=== PATIENT | male | born 1955 | race Caucasian/White ===

== ENCOUNTER 2019-05-06 02:49 | Emergency (ER) | payer OTHER ==
[~2019-05-06] VITALS: Ht 172.7 cm; Wt 135.6 kg
--- NOTE | 2019-05-06 02:55 | ED.ADGEN ---
Past History Past Medical History: Arthritis, Other Adult General Chief Complaint Chief Complaint ".. I ve.. been having this Lt flank, hip and leg pain for past week.. it got so bad tonight.. I could not sleep... " HPI HPI Patient is a 63 year old male who presents with above hx and complaints of severe left flank hip and leg pain. Pain has been persistent for the past week. No history of specific injury. Patient has had history of previous disc disease. Patient normally follows at [place]. No recent travel. 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 Patient is any problem. Urination or defecation. Does walk with guarded gait because of left leg pain. Patient reports marked pain after sitting or with left leg straight lift. Patient has no spinal midline tenderness. Patient does have a history of venous stasis and leg edema. Review of Systems Review of Systems Constitutional: Denies fever or chills [] Eyes: Denies change in visual acuity, redness, or eye pain [] HENT: Denies nasal congestion or sore throat [] Respiratory: Denies cough or shortness of breath [] Cardiovascular: No additional information not addressed in HPI [] GI: Denies abdominal pain, nausea, vomiting, bloody stools or diarrhea [] : Denies dysuria or hematuria [] Musculoskeletal: Complains of left flank and lower back pain and left leg pain. Integument: Denies rash or skin lesions [] Neurologic: Denies headache, focal weakness or sensory changes [] Endocrine: Denies polyuria or polydipsia [] All other systems were reviewed and found to be within normal limits, except as documented in this note. Family History Family History Noncontributory Current Medications Current Medications Current Medications Medications (Trade) Dose Ordered Sig/Rosalina Start Time Stop Time Status Last Admin Dose Admin Famotidine (Pepcid Vial) 20 mg 1X ONCE 05/06/19 03:15 05/06/19 04:16 DC 05/06/19 04:22 20 MG Ketorolac Tromethamine (Toradol 30mg Vial) 30 mg 1X ONCE 05/06/19 03:15 05/06/19 04:16 DC 05/06/19 04:21 30 MG Lactated Ringer's 1,000 ml @ 1,000 mls/hr Q1H 05/06/19 03:00 05/06/19 04:16 DC 05/06/19 04:21 1,000 MLS/HR Lorazepam (Ativan Inj) 2 mg 1X ONCE 05/06/19 04:45 05/06/19 05:30 DC 05/06/19 05:20 2 MG Methylprednisolone Acetate (DEPO-Medrol IM) 40 mg 1X ONCE 05/06/19 04:45 05/06/19 05:30 DC 05/06/19 05:20 40 MG Morphine Sulfate (Morphine 10mg Syringe) 10 mg 1X ONCE 05/06/19 03:15 05/06/19 04:16 DC 05/06/19 04:21 10 MG Ondansetron HCl (Zofran) 8 mg 1X ONCE 05/06/19 03:15 05/06/19 04:16 DC 05/06/19 04:22 8 MG Orphenadrine Citrate (Norflex) 60 mg 1X ONCE 05/06/19 03:15 05/06/19 04:16 DC 05/06/19 04:22 60 MG Allergies Allergies Allergies Coded Allergies Type Severity Reaction Last Updated Verified No Known Drug Allergies 05/06/19 No Physical Exam Physical Exam Constitutional: In acute distress, non-toxic appearance. [] HENT: Normocephalic, atraumatic, bilateral external ears normal, oropharynx moist, no oral exudates, nose normal. [] Eyes: PERRLA, EOMI, conjunctiva normal, no discharge. [] Neck: Normal range of motion, no tenderness, supple, no stridor. [] Cardiovascular: Bradycardia Heart rate regular rhythm, no murmur [] Lungs & Thorax: Bilateral breath sounds equal at apexes and a few basilar crackles on bases auscultation [] Abdomen: Bowel sounds normal, soft, no tenderness, no masses, no pulsatile masses. Morbid obesity. Skin: Warm, dry, no erythema, no rash. [] Back: No tenderness, no CVA tenderness. [] Extremities: No tenderness, no cyanosis, no clubbing, ROM intact, bilateral ankle edema. Venous stasis.. []Except findings of left leg sciatic pain on palpation. Neurologic: Alert and oriented X 3, moves all extremities on request. Does have distal sensory, no focal deficits noted. []DTRs +2 patella and brachial. No saddle loss. Psychologic: Affect anxious, judgement normal, mood normal. [] Current Patient Data Vital Signs Vital Signs Date Time Temp Pulse Resp B/P (MAP) Pulse Ox O2 Delivery O2 Flow Rate FiO2 05/06/19 05:30 98.0 63 20 126/55 (78) 98 Room Air Lab Results Laboratory Tests Test 05/06/19 03:40 05/06/19 04:30 White Blood Count 8.5 x10^3/uL (4.0-11.0) Red Blood Count 4.42 x10^6/uL (4.30-5.70) Hemoglobin 13.9 g/dL (13.0-17.5) Hematocrit 41.7 % (39.0-53.0) Mean Corpuscular Volume 94 fL (79-100) Mean Corpuscular Hemoglobin 31 pg (25-35) Mean Corpuscular Hemoglobin Concent 33 g/dL (31-37) Red Cell Distribution Width 13.5 % (11.5-14.5) Platelet Count 178 x10^3/uL (140-400) Neutrophils (%) (Auto) 60 % (31-73) Lymphocytes (%) (Auto) 23 % (24-48) L Monocytes (%) (Auto) 10 % (0-9) H Eosinophils (%) (Auto) 6 % (0-3) H Basophils (%) (Auto) 1 % (0-3) Neutrophils # (Auto) 5.1 x10^3uL (1.8-7.7) Lymphocytes # (Auto) 2.0 x10^3/uL (1.0-4.8) Monocytes # (Auto) 0.9 x10^3/uL (0.0-1.1) Eosinophils # (Auto) 0.5 x10^3/uL (0.0-0.7) Basophils # (Auto) 0.0 x10^3/uL (0.0-0.2) Prothrombin Time 10.4 SEC (9.4-11.4) Prothrombin Time INR 1.0 (0.9-1.1) Activated Partial Thromboplast Time 24 SEC (23-33) Sodium Level 144 mmol/L (136-145) Potassium Level 4.0 mmol/L (3.5-5.1) Chloride Level 107 mmol/L (98-107) Carbon Dioxide Level 27 mmol/L (21-32) Anion Gap 10 (6-14) Blood Urea Nitrogen 21 mg/dL (8-26) Creatinine 1.2 mg/dL (0.7-1.3) Estimated GFR (Cockcroft-Gault) 61.1 Glucose Level 121 mg/dL (70-99) H Calcium Level 8.6 mg/dL (8.5-10.1) Total Bilirubin 0.3 mg/dL (0.2-1.0) Direct Bilirubin 0.1 mg/dL (0.0-0.2) Aspartate Amino Transferase (AST) 20 U/L (15-37) Alanine Aminotransferase (ALT) 31 U/L (16-63) Alkaline Phosphatase 72 U/L (46-116) Creatine Kinase 173 U/L (39-308) Troponin I Quantitative < 0.017 ng/mL (0-0.055) Total Protein 6.4 g/dL (6.4-8.2) Albumin 3.1 g/dL (3.4-5.0) L Amylase Level 48 U/L (25-115) Lipase 97 U/L (73-393) Urine Collection Type Unknown Urine Color Yellow Urine Clarity Clear Urine pH 6.0 Urine Specific [place] >=1.030 Urine Protein Neg (NEG-TRACE) Urine Glucose (UA) Neg mg/dL (NEG) Urine Ketones (Stick) Neg mg/dL (NEG) Urine Blood Neg (NEG) Urine Nitrite Neg (NEG) Urine Bilirubin Neg (NEG) Urine Urobilinogen Dipstick 0.2 mg/dL (0.2 mg/dL) Urine Leukocyte Esterase Neg (NEG) Urine RBC Occ /HPF (0-2) Urine WBC 0 /HPF (0-4) Urine Squamous Epithelial Cells Occ /LPF Urine Bacteria Few /HPF (0-FEW) Urine Mucus Slight /LPF Urine Opiates Screen Neg (NEG) Urine Methadone Screen Neg (NEG) Urine Barbiturates Neg (NEG) Urine Phencyclidine Screen Neg (NEG) Urine Amphetamine/Methamphetamine Neg (NEG) Urine Benzodiazepines Screen Neg (NEG) Urine Cocaine Screen Neg (NEG) Urine Cannabinoids Screen Neg (NEG) Urine Ethyl Alcohol Neg (NEG) EKG EKG My interpretation EKG shows a sinus rhythm at 61 bpm. No acute findings of STEMI[] Radiology/Procedures Radiology/Procedures -[][address] [address] IMAGING REPORT Signed PATIENT: AYUSH ROYAL ACCOUNT: [id number] : 1955 LOCATION: ER AGE: 63 SEX: M EXAM STATUS: REG ER ORD. PHYSICIAN: DENA GAMA MD REASON: Left hip pain PROCEDURE: CT PELVIS WO CONTRAST CT pelvis with contrast HISTORY: Pain Axial helical images of the pelvis obtained without contrast and axial coronal and sagittal reconstruction was performed. The visualized osseous structures appear normal. There is no free fluid. The appendix is normal. IMPRESSION: No acute findings. End impression CT lumbar spine without contrast History: Back pain Axial helical images of the lumbar spine were obtained without contrast. Axial, coronal and sagittal reconstruction was performed. Findings: The vertebral bodies are aligned. There is no loss of vertebral body stature. Evaluation of the central canal is limited without contrast. There is degenerative changes with mild loss of intervertebral disc height. Diffuse or frontal disc bulges resulting in minimal central stenosis at multiple levels. There is moderate narrowing of multiple neuroforamen below the level exiting nerve roots and there is loss of fat around the exiting nerve root on the left at L4-L5. Impression: Degenerative changes. Compression of the intraforaminal course of the exiting nerve root on the left L4-5. No acute findings. PQRS Compliance Statement: One or more of the following individualized dose reduction techniques were utilized for this examination: 1. Automated exposure control 2. Adjustment of the mA and/or kV according to patient size 3. Use of iterative reconstruction technique Electronically signed by: Carolyn Paez III, MD (05/06/2019 4:26 AM) [facility] DICTATED AND SIGNED BY: CAROLYN PAEZ III, MD DATE: 05/06/19 0426 CC: SANDIE RICHARD DO; DENA GAMA MD ~ Course & Med Decision Making Course & Med Decision Making Pertinent Labs and Imaging studies reviewed. (See chart for details). Patient use ice packs as needed for the next 2 or 3 days. Keep follow-up primary care. Take Tylenol ibuprofen for pain. May take Flexeril 10 mg up to 3 times a day for muscle spasms. For marked discomfort may take Vicoprofen up to 4 times a day. Patient to keep follow-up appointments. Patient may be a candidate for physical therapy, acupuncture, and/or spinal steroid injections.. Must follow- up. Return if any concerns. [] Final Impression Final Impression 1. Sciatica 2. Multilevel DJD Lumbar Spine 3. Lt. L-4-5 compression Neuroformamen nerve root 4. Glucose 121 Dragon Disclaimer Dragon Disclaimer This electronic medical record was generated, in whole or in part, using a voice recognition dictation system. Dragon Disclaimer This chart was dictated in whole or in part using Voice Recognition software in a busy, high-work load, and often noisy Emergency Department environment. It may contain unintended and wholly unrecognized errors or omissions. Dragon Disclaimer This chart was dictated in whole or in part using Voice Recognition software in a busy, high-work load, and often noisy Emergency Department environment. It may contain unintended and wholly unrecognized errors or omissions. DENA GAMA MD May 06, 2019 02:55
[2019-05-06] MEDS ORDERED: IV RINGERS SOLUTION,LACTATED 1,000 ML IV SCH (03:00)
[2019-05-06] MEDS ORDERED: ORPHENADRINE CITRATE 60 MG/2 ML VIAL. IV ONE (03:15)
[2019-05-06] MEDS ORDERED: ONDANSETRON PF 4 MG/2 ML VIAL. IVP ONE (03:15)
[2019-05-06] MEDS ORDERED: KETOROLAC 30 MG/ML VIAL. IVP ONE (03:15)
[2019-05-06] MEDS ORDERED: FAMOTIDINE 20 MG/2 ML VIAL IVP ONE (03:15)
[2019-05-06] MEDS ORDERED: MORPHINE SULFATE 10 MG/ML SYRINGE. SQ ONE (03:15)
[2019-05-06 04:10] LABS: BASO % 1 % (0-3); EOS # 0.5 x10^3/uL (0.0-0.7); EOS % 6 % (0-3); HEMATOCRIT 41.7 % (39.0-53.0); HEMOGLOBIN 13.9 g/dL (13.0-17.5); LYMPH % 23 % (24-48); MEAN CORPUSCULAR HEMOGLOBIN 31 pg (25-35); MEAN CORPUSCULAR HGB CONC 33 g/dL (31-37); MEAN CORPUSCULAR VOLUME 94 fL (79-100); MONO # 0.9 x10^3/uL (0.0-1.1); MONO % 10 % (0-9); NEUT # 5.1 x10^3uL (1.8-7.7); NEUT % 60 % (31-73); PLATELET COUNT 178 x10^3/uL (140-400); RED BLOOD COUNT 4.42 x10^6/uL (4.30-5.70); RED CELL DISTRIBUTION WIDTH 13.5 % (11.5-14.5); WHITE BLOOD COUNT 8.5 x10^3/uL (4.0-11.0)
[2019-05-06 04:20] LABS: ALBUMIN 3.1 g/dL (3.4-5.0); CALCIUM 8.6 mg/dL (8.5-10.1); CREATININE 1.2 mg/dL (0.7-1.3); DIRECT BILIRUBIN 0.1 mg/dL (0.0-0.2); GFR 61.1; TOTAL BILIRUBIN 0.3 mg/dL (0.2-1.0); TOTAL PROTEIN 6.4 g/dL (6.4-8.2)
--- NOTE | 2019-05-06 04:30 | RAD ---
CT pelvis with contrast HISTORY: Pain Axial helical images of the pelvis obtained without contrast and axial coronal and sagittal reconstruction was performed. The visualized osseous structures appear normal. There is no free fluid. The appendix is normal. IMPRESSION: No acute findings. End impression CT lumbar spine without contrast History: Back pain Axial helical images of the lumbar spine were obtained without contrast. Axial, coronal and sagittal reconstruction was performed. Findings: The vertebral bodies are aligned. There is no loss of vertebral body stature. Evaluation of the central canal is limited without contrast. There is degenerative changes with mild loss of intervertebral disc height. Diffuse or frontal disc bulges resulting in minimal central stenosis at multiple levels. There is moderate narrowing of multiple neuroforamen below the level exiting nerve roots and there is loss of fat around the exiting nerve root on the left at L4-L5. Impression: Degenerative changes. Compression of the intraforaminal course of the exiting nerve root on the left L4-5. No acute findings. PQRS Compliance Statement: One or more of the following individualized dose reduction techniques were utilized for this examination: 1. Automated exposure control 2. Adjustment of the mA and/or kV according to patient size 3. Use of iterative reconstruction technique Electronically signed by: Ayden Mendoza III, MD (05/06/2019 4:26 AM) [facility]
[2019-05-06] MEDS ORDERED: methylPREDNISolone ACETATE 40 MG/ML VIAL. IM ONE (04:45)
[2019-05-06 05:20] LABS: BARBITURATES NEG (NEG); BENZODIAZEPINES NEG (NEG); CANNABINOIDS NEG (NEG); COCAINE NEG (NEG); METHADONE NEG (NEG); OPIATES NEG (NEG); PHENCYCLIDINE NEG (NEG)
[2019-05-06] MEDS ORDERED: CYCL-331 PO (05:24)
[2019-05-06] MEDS ORDERED: HYDR-1179 PO (05:24)
[2019-05-06 05:29] LABS: BACTERIA,URINE FEW /HPF (0-FEW); BILIRUBIN,URINE NEG (NEG); CLARITY,URINE CLEAR; COLOR,URINE YELLOW; GLUCOSE,URINE NEG (NEG); NITRITE,URINE NEG (NEG); RBC,URINE OCC /HPF (0-2); SQUAMOUS EPITHELIAL CELL,UR OCC /LPF; UROBILINOGEN,URINE 0.2 mg/dL (0.2 mg/dL); WBC,URINE 0 /HPF (0-4)
[2019-05-06 05:30] VITALS: BP 126/55
[2019-05-06 05:33] LABS: AMPHETAMINE/METHAMPHETAMINE NEG (NEG)
--- NOTE | 2019-05-06 07:23 | RAD ---
ACUTE ABDOMEN SERIES INDICATION: Pain. COMPARISON STUDY: None. FINDINGS: Lungs: Low lung volume. No pulmonary mass or consolidation. The tracheobronchial tree and hilar structures are normal. Pleura: No pleural effusion or pneumothorax. Heart and Mediastinum: Mildly enlarged cardiac size. The great vessels of the thorax are normal. Abdomen: Nonobstructive bowel gas pattern. Moderate colonic stool. No free air. Pelvic phleboliths. IMPRESSION: 1. Nonobstructive bowel gas pattern. Moderate colonic stool. 2. Low lung volume. No consolidation. Electronically signed by: Gerald Chavez MD (05/06/2019 7:20 AM) [facility]
--- NOTE | 2019-05-09 03:54 | EKG ---
[address] [address] Test Date: 2019-05-06 Test Time: 03:16:28 Pat Name: AYUSH ROYAL Department: Room: Gender: M [employer] Worker: EVELYN : 1955 Requested By: DENA GAMA Order Number: [id number] Reading MD: Measurements Intervals [place] Rate: 61 P: 34 OK: 200 QRS: 0 QRSD: 78 T: 4 QT: 398 QTc: 406 Interpretive Statements SINUS RHYTHM LEFTWARD AXIS R-S TRANSITION ZONE IN V LEADS DISPLACED TO THE RIGHT OTHERWISE NORMAL ECG RI6.01 No previous ECG available for comparison
== END 2019-05-06 05:55 | disposition home or self-care (01) ==
LOC: ER 02:49
DX: M54.42 Lumbago with sciatica, left side (principal); M47.896 Other spondylosis, lumbar region; G95.29 Other cord compression; M19.90 Unspecified osteoarthritis, unspecified site
CPT/HCPCS: 36415; 72131; 72192; 74022; 80048; 80076; 80307; 81001; 82150; 82550; 83690; 84484; 85025; 85610; 85730; 93005; 96372; 96374; 96375; 99285; J1030; J1885; J2060; J2270; J2360; J2405; J3490; J7120

== ENCOUNTER → 2020-07-16 | Outpatient (CLI) | payer OTHER ==
[~2020-07-16] MED LIST: CYCL-331 PO; HYDR-1179 PO
--- NOTE | 2020-07-17 08:36 | RAD ---
EXAM: Dual energy x-ray absorptiometry (DEXA). HISTORY: 65-year-old male, screening. COMPARISON: None available. TECHNIQUE: Dual energy x-ray absorptiometry of the lumbar spine and right femur was performed. Calcu lation of bone mineral density based on standard deviations above or below the expected young adult n ormal value (T-score) was completed. FINDINGS: The average bone mineral density in the 1st through 4th lumbar vertebrae is 1.1-0 g/cmxcm, corresponding with a T-score of -0.8. The average total bone mineral density in the right femur is 0.970 g/cmxcm, corresponding with a T-s core of -0.5. IMPRESSION: Findings are within the range of normal bone density with relation to the lumbar spine and right femu r. Note: Definitions established by the World Health Organization: 1. Normal: T-score is -1.0 or above. 2. Osteopenia: T-score is between -1.0 and -2.5 . 3. Osteoporosis: T-score is -2.5 or below. Electronically signed by: Yanely Peres MD (07/17/2020 8:34 AM) [id number]
== END ==
LOC: DXRAD 11:02
PROVIDERS: ATTEND Family Medicine
DX: E55.9 Vitamin D deficiency, unspecified (principal)
CPT/HCPCS: 77080